=== PATIENT | male | born 2000 | race Caucasian/White ===

== ENCOUNTER 2024-05-23 22:39 | Emergency (ER) | payer MEDICAID ==
[~2024-05-23] VITALS: Ht 177.8 cm; Wt 82.0 kg
[2024-05-23 23:13] VITALS: BP 123/75; PULSE 118; RESP 18; TEMP 98.5; O2SAT 98
== END 2024-05-24 02:45 | disposition home or self-care (01) ==
LOC: ER 22:39
DX: F12.90 Cannabis use, unspecified, uncomplicated (principal); J30.81 Allergic rhinitis due to animal (cat) (dog) hair and dander; I49.9 Cardiac arrhythmia, unspecified; Z98.890 Other specified postprocedural states
CPT/HCPCS: 93005; 99283